=== PATIENT | female | born 1990 | race Native Hawaiian/Other Pacific Islander ===

== ENCOUNTER 2023-01-08 10:23 | Emergency (ER) | payer OTHER ==
[~2023-01-08] VITALS: Ht 172.7 cm; Wt 108.9 kg
[2023-01-08 10:24] VITALS: BP 111/68; TEMP 97.4
== END 2023-01-08 10:59 | disposition home or self-care (01) ==
LOC: ED 10:23
DX: S39.012A Strain of muscle, fascia and tendon of lower back, initial encounter (principal); K02.9 Dental caries, unspecified
CPT/HCPCS: 99282

== ENCOUNTER 2023-01-12 13:35 | Emergency (ER) | payer OTHER ==
[~2023-01-12] VITALS: Ht 167.6 cm; Wt 108.9 kg
[2023-01-12 13:42] VITALS: BP 128/81; TEMP 98.1
== END 2023-01-12 14:48 | disposition home or self-care (01) ==
LOC: ED 13:35
DX: L02.231 Carbuncle of abdominal wall (principal); F19.10 Other psychoactive substance abuse, uncomplicated; Z72.0 Tobacco use
CPT/HCPCS: 99282

== ENCOUNTER 2023-07-06 17:47 | Emergency (ER) | payer OTHER ==
[~2023-07-06] VITALS: Ht 172.7 cm; Wt 92.5 kg
[2023-07-06 17:56] VITALS: TEMP 98.3
[2023-07-06] MEDS ORDERED: SODIUM CHLORIDE 0.9% 1,000 ML IV ONE ×2 (18:44→18:47)
[2023-07-06] MEDS ORDERED: Ondansetron HCl 4 MG INJ INJ ONE (18:45)
[2023-07-06] MEDS ORDERED: MORPHINE SULFATE 10 MG ONE (18:45)
[2023-07-06] MEDS ORDERED: MORPHINE SULFATE 4 MG INJ ONE (18:47)
[2023-07-06 19:08] LABS: PLATELET COUNT 227 K/uL (152-353)
[2023-07-06 19:12] LABS: POTASSIUM 3.7 mmol/L (3.6-5.2)
[2023-07-06] MEDS ORDERED: PANTOPRAZOLE SODIUM 40 MG TAB PO ONE ×2 (22:21→22:31)
[2023-07-06 22:43] VITALS: BP 121/74
== END 2023-07-06 22:43 | disposition home or self-care (01) ==
LOC: ED 17:47
PROVIDERS: Family Medicine
DX: R10.9 Unspecified abdominal pain (principal); F17.210 Nicotine dependence, cigarettes, uncomplicated; R51.9 Headache, unspecified; K21.9 Gastro-esophageal reflux disease without esophagitis
CPT/HCPCS: 36415; 80053; 81002; 81025; 83690; 85027; 96361; 96374; 96375; 99284; J2270; J2405; Q9963